=== PATIENT | male | born 1980 | race Caucasian/White ===

== ENCOUNTER 2019-10-07 05:45 | Day surgery (SDC) | payer BC, SELFPAY ==
[2019-09-15 16:05] VITALS: BMI 23.5
--- NOTE | 2019-10-06 23:06 | HP.PCM_ITS ---
History and Physical Date of Admission: 10/07/19 HISTORY OF PRESENT ILLNESS 38 year old man presents with enlarging soft tissue masses right medial forehead by medial eyebrow and right earlobe over the last several months. There is some soreness when these masses are bumped. He denies fever. He denies trauma. He denies recent infection. He denies drainage. He denies headaches. He presents today for further evaluation and treatment. PAST MEDICAL HISTORY None PAST SURGICAL HISTORY None ALLERGIES No Known Allergies MEDICATIONS NK FAMILY HISTORY Unknown - No problems noted. SOCIAL HISTORY Smoking Status: Current every day smoker counseling given: provider counseling, counseling >10 minutes alcohol intake: current substance use type: does not use REVIEW OF SYSTEMS General - Denies fever, fatigue, and weight loss. Eyes - Denies cataracts and glaucoma. ENT - Denies nasal congestion and sore throat. Endocrine - Denies excessive thirst and urination. Skin - Denies skin cancer. Has enlarging soft tissue masses right medial forehead by eyebrow and right earlobe. Musculoskeletal - Denies joint pain, joint stiffness, weakness of muscles and joints, back pain, and arthritis. Neuro - Denies headaches. Cardiovascular - Denies chest pain, fatigue, and shortness of breath with exertion. Psych - Denies anxiety and depression. Respiratory - Denies chronic cough and shortness of breath. Patient is a smoker. Gastrointestinal - Denies nausea, vomiting, diarrhea, and constipation. Hematologic - Denies abnormal bruising and bleeding. Genitourinary - Denies hematuria and urinary frequency. PHYSICAL EXAMINATION General - Alert and Oriented HEENT - PERRL. EOMI. Throat is clear. On the right medial forehead by the medial eyebrow is a soft tissue mass that measures 12 mm. It is mobile. No adherence to the skin. No evidence of infection. No ulceration. There is some discomfort when bumped. Patient can elevate his eyebrows bilaterally and symmetrically. On the right earlobe adjacent to the cheek is a firm mass that measures 14 mm. The overlying skin is adherent. Some tenderness to palpation. No ulceration. No evidence of infection. Minimal mobility. Neck - Supple and nontender. No cervical adenopathy. No suspicious lesions noted. Lungs - Clear to auscultation. Heart - Regular rate and rhythm. Abdomen - Soft and nondistended. Extremities - FROM. No axillary adenopathy. Radial pulses are palpable. No suspicious lesions noted. Neuro - CN II-XII grossly intact. Psych - Normal mood and affect. ASSESSMENT 1. 12 mm soft tissue mass right medial forehead by medial eyebrow. 2. 14 mm painful firm mass right earlobe. 3. Smoker. PLAN Recommend excising these soft tissue masses right medial forehead by eyebrow and the right earlobe and send them to Pathology for analysis to rule out carcinoma. Usually the forehead masses are submuscular in nature. Because of the muscle bruising that can occur, additional pain medication may be needed postop. For the right earlobe mass, the overlying skin will be excised with the mass. Reconstruction will be with a skin flap. Surgery will be done under local anesthesia and IV sedation on an outpatient basis. Patient was informed of the risks and complications of the procedure including alternatives to surgery. These were discussed with the patient personally. Patient voices understanding and wishes to proceed. Some of the risks and complications were included in a form from the [employer]. Encouraged patient to stop smoking as it may have deleterious effects on wound healing.
[2019-10-07] VITALS (8 sets, daily range): BP systolic 91–128; BP diastolic 64–78; PULSE 63–80; RESP 16; TEMP 36.3–36.9; O2SAT 97–100; BMI 23.1
[2019-10-07] MEDS: Lactated Ringers 1,000 ML 100 ML IV (06:28)
--- NOTE | 2019-10-07 07:30 | MASS_PTH ---
PATIENT: MAYO PHILLIP LOC: [facility] [place] U#:[id number] AGE/SX: 38/M ROOM: RE10/07/[address]: Dr. Jean Wilson MD : 1980 BED: DIS: 10/07/2019 SPEC #: [id number] RECD: 10/07/19 10:50 STATUS: CANDACE JAQULEIN #: [id number] BRENNAN: 10/07/19 07:[address]: Jean Wilson DEPT: SURGICAL PATHOLOGY RECD BY: Oj Donohue ENTERED: 10/07/19 11:37 SP TYPE: Mass OTHR DR: Debbie Beard, LENNY Tissues: A - Forehead, NOS B - Right ear, NOS Procedures: Surgery Specimen Level III HEADER OPERATION: Excision soft tissue mass medial forehead by eyebrow PRE-OP DIAGNOSIS: 12 mm soft tissue mass right medial forehead by eyebrow; 14 mm painful firm mass right earlobe TISSUE SUBMITTED: A - Soft tissue mass right medial forehead, B - Painful firm mass right earlobe MICROSCOPIC DIAGNOSIS A. Soft tissue mass, right medial forehead, excision: Epidermal inclusion cyst with rupture and associated reparative and reactive change and mild chronic inflammation. B. Right earlobe mass, excision: Epidermal inclusion cyst. AM:mann 10/10/19 MICROSCOPIC DESCRIPTION Slides are reviewed. GROSS DESCRIPTION A - Received in fixative is one container labeled with the patient's name and designated soft tissue mass medial forehead. The specimen consists of a piece of ponce soft tissue measuring 1 x 0.6 x 0.5 cm. The specimen is inked, bisected and submitted entirely in one cassette. B - Received in fixative is one container labeled with the patient's name and designated painful firm mass right earlobe. The specimen consists of a piece of skin with underlying tissue measuring 1.4 x 0.7 x 0.5 cm. The specimen is inked, serially sectioned and submitted entirely in one cassette. / SJ:mann 10/07/19 TC:1 CPT: 53214 x2
[2019-10-07] MEDS: Mupirocin Ointment 22gm Tube 1 APPLIC (08:48)
--- NOTE | 2019-10-07 08:53 | PCM.OPRPT ---
Report of Operation Date of Procedure: 10/07/19 Pre-Operative Diagnosis: 1. 12 mm soft tissue mass right medial forehead by medial eyebrow. 2. 14 mm painful firm mass right earlobe. 3. Smoker. Post-Operative Diagnosis: Same. Surgery/Procedure Performed:: 1. Excision 12 mm soft tissue mass right medial forehead by medial eyebrow with 1.5 cm layered closure. 2. Excision 14 mm painful firm mass right earlobe with advancement skin flap reconstruction (6 cm2). Description of Surgical Findings:: 38 year old man presents with enlarging soft tissue masses right medial forehead by medial eyebrow and right earlobe over the last several months. There is some soreness when these masses are bumped. He denies fever. He denies trauma. He denies recent infection. He denies drainage. He denies headaches. Patient was informed of the risks and complications of the procedure including alternatives to surgery. These were discussed with the patient personally. Patient voices understanding and wishes to proceed. Some of the risks and complications were included in a form from the [employer] [place] [employer]. Encouraged patient to stop smoking as it may have deleterious effects on wound healing. 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 Soft tissue mass right medial forehead by medial eyebrow to Pathology. 2. Painful firm mass right earlobe to Pathology. Drains: None. Estimated Blood Loss (mL): 20 ml. Description of Procedure: Patient was taken to OR in supine position and was placed under general anesthesia. The face was prepped and draped in the usual fashion. SCD's were placed for DVT prophylaxis. Perioperative antibiotics were given intravenously. Using xylocaine with epinephrine, the face was infiltrated. After waiting 5 minutes for the anesthetic to take effect, I made a horizontal incision over the soft tissue mass right medial forehead by medial eyebrow down into the subcutaneous tissue. The mass was located in the subcutaneous tissue with some adherence to the skin . An ellipse of skin was excised to include the adherent mass. The mass was sharply dissected free and sent to Pathology for analysis to rule out carcinoma. It extended down to the muscle but did not involve the muscle. Hemostasis was obtained with electrocautery. The wound was irrigated with saline. The wound was closed in a layered fashion with 5-0 Monocryl interrupted sutures for the deep dermis and subcutaneous tissue. The skin was approximated with 6-0 Prolene simple interrupted sutures. Steri-strips were applied followed by antibiotic ointment. I then excised the soft tissue mass on the right ear lobe. The mass was adherent to the overlying skin. A crescenteric ellipse of skin was excised with the mass to aid in wound closure. The mass was sharply dissected free and sent to Pathology for analysis to rule out carcinoma. Hemostasis was obtained with electrocautery. The wound was irrigated with saline. I mobilized a cheek flap inferior to the ear lobe and advanced the skin flap into the crescenteric defect right ear lobe. Hemostasis was obtained with electrocautery. The size of the defect and the size of the flap needed to close the defect was 6 cm2. I closed the wound with 5-0 Monocryl interrupted sutures for the deep dermis and subcutaneous tissue. The skin was approximated with 5-0 Prolene simple interrupted sutures. Good ear lobe contouring was noted after the wound closure. Antibiotic ointment was applied to the suture line followed by a gauze compression dressing. A gauze compression dressing was also applied to the forehead incision. Patient tolerated the procedure well and was sent to PACU in satisfactory condition. Patient will be sent home on antibiotics and pain medication. He will keep his head elevated during the initial postoperative period. He will be on a lifting restriction as well. Patient will followup in a week for a wound check and for discussion of the pathology report and for removal of the sutures. Grafts/Implants Used: None. - Complications None. - Admit VTE Documentation VTE Present on Admission: No VTE Mechan Device Prophylaxis: SCD's VTE Pharm Prophylaxis ordered?: No Code Visit Surgery Charges CPT - 77050 ICD-10 - R22.0, F17.200 10293 H93.8x1, F17.200 17711 H93.8x1, F17.200
--- NOTE | 2019-10-07 09:01 | DCINST_ITS ---
You will use the following diet at home:: No restrictions Discharge Activity: May not drive while taking narcotic pain medications., May Shower - in two days., - - no heavy liftng. keep head elevated. May shower in (days): 2 May resume sexual activity in: No Restrictions Ice area for (Minutes): 5 - as needed for facial swelling. Weight Bearing Status: Weight bearing as tolerated Lifting Restrictions: 20 lbs. Keep extremity elevated above heart level: - - elevate head. Call your doctor if your incision/area has: Continuous Slow Oozing, Sudden Increased Bleeding, Increased Pain/ Swelling, Increased Redness, Foul Smelling Discharge, Swelling at the incision site Call your doctor if you observe: Fever of 101 or Higher, Coldness, Increased Pain, Shortness of breath, Chest pain, Calf discomfort, Uncontrolled pain Suture Line Care: - - after dressing removed in two days, apply antibiotic ointment to suture lines daily. Change Dressing in (Days):: 2 - antibioticc ointment daily. Cleanse incision/area with: - - may get incisions wet in the shower in two days. Allergies/Adverse Reactions: Allergies No Known Allergies Allergy (Unverified 10/04/19 11:29) Medications to take at Discharge Clindamycin HCl [Cleocin] 300 mg PO Q6H #15 cap 10/07/19 Oxycodone HCl/Acetaminophen [Percocet 5/325] 1 tab PO TID PRN PRN 7 Days #20 tab 10/07/19 The following prescriptions were given: Clindamycin HCl [Cleocin] 300 mg PO Q6H #15 cap Prescription Printed Oxycodone HCl/Acetaminophen [Percocet 5/325] 1 tab PO TID PRN PRN 7 Days #20 tab PRN Reason: Pain Score 4-5/10 Prescription Printed Primary Care Physician: Debbie Beard NP-C [Primary Care Provider] - Test Results: Test results from this visit will be discussed in further detail at your follow- up appointment, if applicable. Please Follow Up With: Jean Wilson MD When: one week. call [phone] for appt. Proposed Discharge Date: 10/07/19
[2019-10-07] MEDS: oxyCODONE 5 MG Tablet PO (10:05)
[2019-10-07] MEDS: Acetaminophen 325 MG Tablet PO (10:05)
== END 2019-10-07 10:50 | disposition home or self-care (01) ==
LOC: SDC 05:46 → AC 05:47
PROVIDERS: Family Provider Nurse Practitioner Family; PCP Nurse Practitioner Family; Referring Provider Surgery; Visit Provider Surgery
PROC: (CPT 14060; principal; 2019-10-07 07:20)
DX: L72.0 Epidermal cyst (principal); F17.200 Nicotine dependence, unspecified, uncomplicated
CPT/HCPCS: 00300; 14060; 21011; 69110; 88304; 88305; J7120; J2405